=== PATIENT | male | born 1965 | race Two or more races ===

== ENCOUNTER 2025-03-29 13:20 | Day surgery (SDC) | payer OTHER, SELFPAY ==
[2025-03-26 14:44] VITALS: BMI 27.1
[2025-03-29] VITALS (7 sets, daily range): BP systolic 112–137; BP diastolic 72–79; PULSE 53–56; RESP 12–18; TEMP 36.2–37.2; O2SAT 95–100; BMI 25.7
[2025-03-29] MEDS: MIDAZOLAM INJ 1 MG/ML VIAL 2 ML (ASD USE ONLY) 2 MG IVP (15:33)
[2025-03-29] MEDS: SODIUM CHLORIDE 0.9% 500 ML 500 ML 20 ML IV (15:33)
[2025-03-29] MEDS: fentaNYL CIT INJ 50 mCg/ML AMP 2ML (ASD USE ONLY) IVP (15:33)
== END 2025-03-29 16:18 | disposition home or self-care (01) ==
PROVIDERS: Referring Provider Specialist; Visit Provider Specialist
PROC: 0DBE8ZX Excision of Large Intestine, Via Natural or Artificial Opening Endoscopic, Diagnostic (ICD-10-PCS; CPT 45380; principal; 2025-03-29 14:00)
DX: Z12.11 Encounter for screening for malignant neoplasm of colon (principal); K64.9 Unspecified hemorrhoids; K57.30 Diverticulosis of large intestine without perforation or abscess without bleeding
CPT/HCPCS: 45378; J1200; J2250; J3010; J7999